=== PATIENT | female | born 1970 | race Caucasian/White ===

== ENCOUNTER → 2021-12-11 09:51 | Outpatient (BNVA) | payer OTHER, SELFPAY | PROVIDERS: Visit Provider Internal Medicine | DX: M54.50 Low back pain, unspecified (principal); M25.50 Pain in unspecified joint; Z11.59 Encounter for screening for other viral diseases | CPT/HCPCS: 72100; 72202; 80053; 82550; 83735; 84100; 85025; 86140; 86160; 86162; 86200; 86235; 86255; 86376; 86431; 86704; 86803; 86812; 87340; 99204 ==

== ENCOUNTER → 2021-12-30 14:39 | Outpatient (BNVA) | payer OTHER, SELFPAY | PROVIDERS: Visit Provider Internal Medicine | DX: M25.50 Pain in unspecified joint (principal); M54.50 Low back pain, unspecified; R76.8 Other specified abnormal immunological findings in serum | CPT/HCPCS: 72040; 72070; 73130; 99214 ==

== ENCOUNTER 2022-09-16 15:15 | Outpatient (CLI) | payer BC, OTHER, SELFPAY ==
[2022-09-16 15:50] LABS: Basophils # 0.1 10^3/uL (0.0-0.1); Basophils % 1.3 %; Eosinophils # 0.3 10^3/uL (0.0-0.8); Eosinophils % 4.6 %; Hematocrit 43.2 % (37.0-47.0); Hemoglobin 13.6 g/dL (11.5-15.3); Lymphocytes # 2.4 10^3/uL (0.8-4.8); Lymphocytes % 38.4 %; Mean Corpuscular HGB Conc 31.5 g/dL (30.0-36.0); Mean Corpuscular Hemoglobin 28.2 pg (28.0-34.0); Mean Corpuscular Volume 89.6 fl (81-99); Mean Platelet Volume 11.6 fL (7.4-10.4); Monocytes # 0.6 10^3/uL (0.2-0.9); Monocytes % 8.9 %; Neutrophils # 2.92 10^3/uL (1.8-7.7); Neutrophils % 46.5 %; Nucleated Red Blood Cells % 0 %; Platelet Count 152 10^3/cmm (130-400); Red Blood Count 4.82 10^6/uL (4.1-5.3); Red Cell Distribution Width 13.5 % (12.1-15.1); White Blood Count 6.3 10^3/uL (4.0-10.0)
[2022-09-16 15:58] LABS: Erythrocyte Sedimentation Rate 6 mm/hr (0-15)
[2022-09-16 16:06] LABS: Alanine Aminotransferase 15 U/L (0-33); Albumin Level 4.3 g/dL (3.5-5.2); Alkaline Phosphatase 88 U/L (35-105); Anion Gap 12.4 (5-19); Aspartate Amino Transferase 16 U/L (0-32); Blood Urea Nitrogen 11 mg/dL (6-20); Calcium 8.9 mg/dL (8.5-10.5); Carbon Dioxide 28 mmol/L (22-29); Chloride 106 mmol/L (98-107); Globulin 2.6 g/dL (1.3-4.6); Glomerular Filtration Rate 74.7 mL/min (90-130); Glucose 88 mg/dL (65-115); Osmolality Calculated 293 mOsm/kg (285-295); Potassium 4.4 mmol/L (3.5-5.1); Sodium 142 mmol/L (136-145); Total Bilirubin 0.3 mg/dL (0.15-1.2); Total Protein 6.9 g/dL (6.6-8.7)
== END 2022-09-16 15:16 | disposition home or self-care (01) ==
LOC: LAB 15:22
PROVIDERS: PCP Nurse Practitioner Family; Visit Provider Internal Medicine
DX: M25.50 Pain in unspecified joint (principal)
CPT/HCPCS: 36415; 80053; 85025; 85651; 86140

== ENCOUNTER → 2022-11-24 14:52 | Outpatient (BNVA) | payer OTHER, MEDICAID, SELFPAY | PROVIDERS: PCP Nurse Practitioner Family; Referring Provider Psychiatry & Neurology Neurology; Visit Provider Psychiatry & Neurology Neurology | DX: G43.019 Migraine without aura, intractable, without status migrainosus (principal); H81.09 Meniere's disease, unspecified ear; H72.90 Unspecified perforation of tympanic membrane, unspecified ear; I10 Essential (primary) hypertension; Z98.1 Arthrodesis status; M79.7 Fibromyalgia; M06.9 Rheumatoid arthritis, unspecified | CPT/HCPCS: 99203 ==

== ENCOUNTER → 2022-11-27 11:46 | Outpatient (BNVA) | payer OTHER, MEDICAID, SELFPAY | PROVIDERS: PCP Nurse Practitioner Family; Visit Provider Internal Medicine | DX: M25.50 Pain in unspecified joint (principal); M54.50 Low back pain, unspecified | CPT/HCPCS: 99214 ==

== ENCOUNTER 2022-12-14 13:06 | Outpatient (CLI) | payer OTHER, MEDICAID, SELFPAY ==
--- NOTE | 2022-12-14 13:00 | MR_ITS ---
WS: [id number] MRI BRAIN WITH AND WITHOUT CONTRAST HISTORY: G43.909 - Migraine, unspecified, not intractable, chronic neck pain. COMPARISON: None available. TECHNIQUE: Multiplanar imaging performed through the brain with MultiHance 20 ml's IV. No acute infarcts are seen. Gandhi-white matter differentiation is well preserved. There are a few very minimal scattered T2 hyperintensities within the white matter, greatest involving the RIGHT frontal lobe. These are very nonspecific and not symmetric. No hemorrhage. No susceptibility artifacts or prior lacunar infarcts. Ventricles and extra-axial spaces are normal. Clivus and pituitary gland are normal. Visualized posterior fossa and brainstem are also normal. Postcontrast images are negative for masses or vascular malformations. Dominant LEFT vertebral artery . Dural venous sinuses are normal. Paranasal sinuses: Well aerated with no significant disease. Mastoid air cells: Normal. Calvarium and scalp: Normal. MR/MR head wo/w con [id number] IMPRESSION: 1. No enhancing masses or significant microvascular ischemic disease. No prior infarct. 2. Very minimal small vessel ischemic disease, predominantly RIGHT frontal lob e. Not a typical distribution related to migraines. 3. No atrophy and no acute infarct.
[2022-12-14] MEDS: gadobenate dimeglumine 20 mL vial IV (13:59)
== END 2022-12-14 13:07 | disposition home or self-care (01) ==
LOC: RAD 13:07
PROVIDERS: PCP Nurse Practitioner Family; Visit Provider Psychiatry & Neurology Neurology
DX: G43.909 Migraine, unspecified, not intractable, without status migrainosus (principal); R42 Dizziness and giddiness
CPT/HCPCS: 70553; A9577

== ENCOUNTER 2022-12-17 09:31 | Outpatient (CLI) | payer OTHER, MEDICAID, SELFPAY ==
--- NOTE | 2022-12-17 10:00 | USCV_ITS ---
Yumiko Callejas Age: 52 Gender: F : 1970 Exam Date: 12/17/2022 10:03 Ordering Phys: Shubham Vanessa MD Technologist: LARON Exam Location: [facility] – [place] Indication: Migraines. Dizziness Risk Factors: Previous Vascular Surgery: Right Brachial BP: / Left Brachial BP: / Right Left Velocity (cm/s) Spectral Plaque Velocity (cm/s) Spectral Plaque Syst/Diast Broadening Syst/Diast Broadening 56.40/ 14.70 Prox CCA 74.30 / 18.80 59.20/ 23.70 Mid CCA 82.70 / 24.30 59.60/ 24.60 Distal CCA 69.90 / 21.00 44.30/ 16.30 Prox ICA 33.50 / 14.50 51.40/ 15.00 Mid ICA 62.60 / 31.10 52.10/ 17.90 Distal ICA 55.50 / 22.70 87.20 ECA 54.60 0.87 ICA/CCA 0.76 Vertebral 34.20/ 5.90 cm/s 76.90/ 23.30 cm/s Subclavian 112.5 139.8 0 0 CONCLUSIONS Right ICA stenosis <50%. Left ICA stenosis <50%. Normal antegrade Doppler flow noted in the right vertebral artery. Normal antegrade Doppler flow noted in the left vertebral artery. Sunil Lea MD (Electronically Signed) Final Date: 17 December 2022 10:37 S
== END 2022-12-17 09:32 | disposition home or self-care (01) ==
LOC: RAD 09:33
PROVIDERS: PCP Nurse Practitioner Family; Visit Provider Psychiatry & Neurology Neurology
DX: R42 Dizziness and giddiness (principal); G43.909 Migraine, unspecified, not intractable, without status migrainosus
CPT/HCPCS: 93880

== ENCOUNTER → 2022-12-23 14:39 | Outpatient (BNVA) | payer OTHER, MEDICAID, SELFPAY | PROVIDERS: PCP Nurse Practitioner Family; Visit Provider Otolaryngology | DX: H81.10 Benign paroxysmal vertigo, unspecified ear (principal) | CPT/HCPCS: 99203 ==

== ENCOUNTER → 2023-01-25 14:32 | Outpatient (BNVA) | payer OTHER, MEDICAID, SELFPAY | PROVIDERS: PCP Nurse Practitioner Family; Visit Provider Psychiatry & Neurology Neurology | DX: G43.019 Migraine without aura, intractable, without status migrainosus (principal); Z98.1 Arthrodesis status; R42 Dizziness and giddiness; M79.7 Fibromyalgia; M06.9 Rheumatoid arthritis, unspecified; Z91.414 Personal history of adult intimate partner abuse | CPT/HCPCS: 99212 ==

== ENCOUNTER → 2023-02-01 13:15 | Outpatient (BNVA) | payer OTHER, MEDICAID, SELFPAY | PROVIDERS: PCP Nurse Practitioner Family; Visit Provider Internal Medicine | DX: I10 Essential (primary) hypertension (principal); M25.50 Pain in unspecified joint; M54.50 Low back pain, unspecified; R51.9 Headache, unspecified | CPT/HCPCS: 36415; 80053; 81003; 82310; 82550; 82607; 82728; 83540; 83735; 83970; 84100; 84443; 85025; 85651; 86140; 99214 ==

== ENCOUNTER → 2023-05-18 13:17 | Outpatient (BNVA) | payer OTHER, MEDICAID, SELFPAY | PROVIDERS: PCP Nurse Practitioner Family; Visit Provider Internal Medicine | DX: M25.50 Pain in unspecified joint (principal); M54.50 Low back pain, unspecified | CPT/HCPCS: 36415; 80053; 81003; 82533; 82607; 82728; 83540; 83735; 84100; 85025; 85651; 86140; 99214 ==

== ENCOUNTER → 2023-07-26 13:47 | Outpatient (BNVA) | payer OTHER, MEDICAID, SELFPAY | PROVIDERS: PCP Nurse Practitioner Family; Visit Provider Psychiatry & Neurology Neurology | DX: G43.711 Chronic migraine without aura, intractable, with status migrainosus (principal); M79.641 Pain in right hand; F41.9 Anxiety disorder, unspecified; R20.0 Anesthesia of skin; R53.1 Weakness; R20.2 Paresthesia of skin; R29.898 Other symptoms and signs involving the musculoskeletal system; M79.604 Pain in right leg | CPT/HCPCS: 99212 ==

== ENCOUNTER → 2023-08-10 08:46 | Outpatient (BNVA) | payer OTHER, MEDICAID, SELFPAY | PROVIDERS: PCP Nurse Practitioner Family; Visit Provider Psychiatry & Neurology Neurology | DX: G56.03 Carpal tunnel syndrome, bilateral upper limbs (principal); G62.89 Other specified polyneuropathies | CPT/HCPCS: 95912 ==

== ENCOUNTER → 2023-08-20 15:01 | Outpatient (BNVA) | payer OTHER, MEDICAID, SELFPAY | PROVIDERS: PCP Nurse Practitioner Family; Visit Provider Psychiatry & Neurology Neurology | DX: G62.89 Other specified polyneuropathies (principal) | CPT/HCPCS: 95910; 95912 ==

== ENCOUNTER → 2023-09-07 14:06 | Outpatient (BNVA) | payer OTHER, MEDICAID, SELFPAY | PROVIDERS: PCP Nurse Practitioner Family; Referring Provider Psychiatry & Neurology Neurology; Visit Provider Physician Assistant | DX: G56.01 Carpal tunnel syndrome, right upper limb; G56.21 Lesion of ulnar nerve, right upper limb | CPT/HCPCS: 73110; 99204 ==

== ENCOUNTER 2023-09-23 08:55 | Day surgery (SDC) | payer OTHER, MEDICAID, SELFPAY ==
[2023-09-23 09:10] VITALS: BP 132/80; PULSE 59; RESP 18; TEMP 36.3; O2SAT 100
[2023-09-23 09:21] VITALS: BMI 34.9
--- NOTE | 2023-09-23 09:22 | W.PM.OPSUD ---
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
[2023-09-23] MEDS: acetaminophen 1,000 MG/100 ML PIGGYBACK 400 MG IV (09:56)
[2023-09-23] MEDS: ketorolac 30 mg/mL INJ IVP (09:58)
[2023-09-23] MEDS: scopolamine 1.5 Patch 1 PATCH TRANSDERMA (09:58)
[2023-09-23] MEDS: sodium chloride 0.9% 1,000 ML 30 ML IV (10:00)
--- NOTE | 2023-09-23 10:03 | P.ANESASSM_ITS ---
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 at G Operation Date: 09/23/23 10:25 Proposed Procedures p Carpal Tunnel Release(Right) - Jerel Stephens DO s [place] Canal Release(Right) - Jerel Stephens DO Familial anesthetic complications: none Was Beta Mike taken within 24 hours: N/A Was Clonidine taken within 24 hours: N/A Last intake: Intake Last Liquid Date 09/22/23 Last Liquid Time 23:30 Last Solid Date 09/22/23 Last Solid Time 23:30 Social No alcohol and No tobacco Exam alert, oriented x 3, clear to auscultation bilaterally and regular rate & rhythm Airway Submandibular: within normal limits Cervical ROM: within normal limits Mallampati: Class II Dentition: full CV/HEM Hypertension GI Gastroesophageal Reflux Disease Metabolic Morbid Obesity [facility] [place] Lower Back Pain and Osteoarthritis/DJD Neuropsych Anxiety, Depression, Headache and Neuropathy Anesthetic Plan ASA status: 3 Anesthesia: General Medications/Allergies Home Medications Medication Instructions Recorded Confirmed Last Taken Type budesonide-formoterol HFA 160 1 inh inhalation BID 12/11/21 09/22/23 09/23/23 History mcg-4.5 mcg/actuation aerosol inhaler (Symbicort) esomeprazole magnesium 20 mg 20 mg PO DAILY 12/11/21 09/22/23 09/21/23 21:00 History capsule,delayed release (Nexium) losartan 25 mg tablet 25 mg PO DAILY 12/11/21 09/22/23 09/22/23 09:00 History montelukast 10 mg tablet 10 mg PO DAILY 12/11/21 09/22/23 09/21/23 21:00 History (Singulair) tiotropium bromide 1.25 2 puff inhalation DAILY 12/11/21 09/22/23 09/22/23 09:00 History mcg/actuation mist for inhalation (Spiriva Respimat) vortioxetine 20 mg tablet 20 mg PO DAILY 12/11/21 09/22/23 09/22/23 09:00 Hist ory (Trintellix) morphine 15 mg tablet,extended 15 mg PO Q8H 12/30/21 09/22/23 09/23/23 History release (MS Contin) pregabalin 200 mg capsule (Lyrica) 200 mg PO TID 12/30/21 09/22/23 09/22/23 09:00 History cetirizine 10 mg tablet (Allergy 10 mg PO DAILY PRN Allergy Symptoms 04/14/22 09/22/23 09/22/23 09:00 History Relief (cetirizine)) linaclotide 72 mcg capsule 72 mcg PO DAILY 04/14/22 09/22/23 09/14/23 History (Linzess) tizanidine 4 mg capsule 4 mg PO Q8H PRN muscle spasticity 11/24/22 09/22/23 09/21/23 21:00 Rx #90 caps buspirone 10 mg tablet 10 mg PO BID #90 tabs 07/26/23 09/22/23 09/22/23 09:00 Rx hydroxychloroquine 200 mg tablet 200 mg PO BID 30 days #60 tabs 08/11/23 09/22/23 09/22/23 09:00 Rx galcanezumab-gnlm 120 mg/mL 120 mg SUBCUT .monthly #1 mL 09/13/23 09/22/23 09/18/23 Rx subcutaneous pen injector (Emgality Pen) Allergies Allergy/AdvReac Type Severity Reaction Status Date / Time promethazine [From Phenergan] Allergy Severe heart Verified 09/22/23 13:33 complications moxifloxacin [From Avelox] Allergy Mild rash Verified 09/22/23 13:33 Current Medications Generic Name Dose Route Start Last Admin Trade Name Freq PRN Reason Stop Dose Admin Sodium Chloride 1,000 mls @ 30 mls/hr 09/23/23 09:00 09/23/23 10:00 Sodium Chloride 0.9% IV 09/24/23 08:59 30 mls/hr .Q24H MICHELLE Administration PFSH Anesthesia Medical History GERD (gastroesophageal reflux disease) Asthma Anxiety Depression History of DVT (deep vein thrombosis) 1997 Chronic migraine Hypertension Sleep apnea Fibromyalgia IBS (irritable bowel syndrome) Tick fever Dizziness Hypertension Surgical History History of fusion of cervical spine History of bilateral breast reduction surgery History of carpal tunnel repair 2009- left History of tubal ligation 1998 History of tonsillectomy 1978 History of placement of ear tubes History of cholecystectomy Family History Other CAD (coronary artery disease) Cancer Lupus Rheumatoid arthritis Stroke Denies family history of Diabetes Dementia Chronic kidney disease (CKD) Social History Smoking and tobacco/nicotine status: never used tobacco/nicotine Alcohol intake: never Substance/Drug Use: never Lives independently: Yes Household members: spouse Marital status: Data Anesthesia Cardiac Studies: No Data to Display
[2023-09-23] MEDS: ceFAZolin 2,000 MG in sodium chloride 0.9% (plus) 50 ML 100 MG IV (10:28)
[2023-09-23] MEDS: ROPivacaine 0.5% SDV 30 mL 25 MG INJECTION (10:55)
[2023-09-23] MEDS: lidocaine-epi 1% 20 mL INJ 5 ML INJECTION (10:55)
--- NOTE | 2023-09-23 11:20 | W.PM.BPON ---
Date of Procedure: 09/23/2023 Surgeon: Jerel Stephens DO Square Dance Caller(s): None Procedure(s) performed: Right carpal tunnel release Right ulnar release at the wrist at [facility]'s canal Findings of the procedure(s): Patient found to have entrapment of the right median nerve and ulnar nerve at the wrist. Underwent procedure as planned with issues complications placed in a volar splint will follow-up in 2-week Estimated blood loss: 10 mL Specimen(s) removed: None Post-operative diagnosis: Right carpal tunnel syndrome, right ulnar nerve entrapment at the wrist at Guyon's canal
--- NOTE | 2023-09-23 11:22 | PM.OP ---
Operative Report Date of procedure: September 23, 2023 Surgeon: Jerel Stephens DO Procedure: Preoperative diagnosis Right carpal tunnel syndrome Right ulnar nerve entrapment at the wrist Postop Diagnosis: same Procedure done: Right carpal tunnel release Right ulnar nerve release at Guyon's canal (wrist) Surgeon: Jerel Stephens DO Estimated blood loss: 10mL Tourniquet? 20 minutes IV fluids: 500mL Complications: None Findings: See operative report narrative Condition: stable Disposition: same day Brief History: Patient's been seen and worked up in the outpatient setting and findings consistent with preoperative diagnosis.? Patient has Right Carpal Tunnel Syndrome,Right ulnar entrapment at guyons canal which has been worked up in the outpatient setting has physical exam findings consistent with this. Patient's nerve study consistent with this. Exam findings consistent with preoperative diagnosis. Patient's failed conservative treatment.? As result through shared decision making agreed to proceed with right carpal tunnel release ,?right ulnar nerve release at the wrist. We talked about tx options as nonoperative and operative intervention.? Understands risk benefits complication alternatives surgical nonsurgical treatment options.? Understanding risks pt agrees to proceed with surgical intervention. Understanding these risks pt agrees to proceed with surgery.? Consent obtained in office. Procedure: Patient seen evaluate in the preoperative holding area.? Consent was reviewed and signed with patient.? Correct extremity marked.? Patient seen evaluated by anesthesia department once cleared for surgery was then taken back to the operative suite placed in supine position all bony prominences well-padded patient properly secured to bed.? Right upper extremity placed onto armboard.? Nonsterile tourniquet applied Right upper arm.? Patient then underwent anesthesia per the anesthesia department.? Patient's Right upper extremity was then prepped and draped in standard orthopedic fashion.? Final timeout performed.? Patient received appropriate preoperative antibiotics. Esmarch was used exsanguinate the Right upper extremity.? Tourniquet was insufflated to 250 mmHg. I started with my release of the ulnar nerve at the wrist. An extensive laterally based palmar incision that extended proximal past the wrist crease with a Enrique incision was made directly over Guyon's canal. At this point in time incision was made between the Pisa form and hamate to follow neurovascular bundle of Guyon's canal. sharp scalpel incision was subsequently made through skin and then I switched to Littler dissection scissors. At this point in time I dissected down over top guyons canal release the brevis muscle belly along the hypothenar region to obtain access into Guyon's canal. Thick band of fascia was noted proximally just proximal to the wrist crease this was released and made sure there was complete decompression of the ulnar nerve proximally just prior to Guyon's canal subsequently released guyon canal and direct visualization with sharp scalpel excision as well as Littler dissection scissors with care utilizing my assistant professor of biochemistry to protect the neurovascular bundle. At this point in time I continued to perform release of the fascia/the roof of Guyon's canal all the way to its most distal extent and the nerve was found to be completely free and untethered. I then in order to perform release of the deep motor branch I then mobilized my dissection around the ulnar nerve and identified the deep motor branch as it courses towards the under knee fascia connected with the hamate. I then utilized dissection scissors and under direct visualization completed my release carefully of the fascial bands tethering over top of the deep motor branch. At this point in time the ulnar nerve was completely decompressed through Guyon's canal and ulnar nerve had complete laxity with no areas of entrapment or tethering. No masses were noted within the contents of the guyons canal.? This completed the ulnar nerve release at the wrist. Next I then subsequently visualized from the ulnar aspect of the carpal tunnel. Identified the distal extent as well as proximal extent into the antebrachial fascia. As result approaching the carpal tunnel from the ulnar position just above the hook of the hamate made an incision through thickened Transverse carpal ligament. It was noted there was significant entrapment of the median nerve. I then switched to Littler dissection scissors to complete my dissection and release distally with care to protect neurovascular structures distally. The tendons were healthy within the carpal tunnel. No masses were noted. I then carried my dissection proximally utilizing retraction by my assistant professor of biochemistry as well as direct visualization with loupe magnification identify the proximal extent of the carpal tunnel and release this to its entirety as well as identified the median nerve and released the tethering of the antebrachial fascia proximally past the wrist crease into the distal aspect of the forearm with no further evidence of median nerve entrapment. The median nerve overall showed signs of compression and inflammation irritation but overall appeared healthy. ? ?Next the wound bed was thoroughly irrigated.? Tourniquet was deflated.? Hemostasis was satisfactory.? The incision was then closed in standard interrupted mattress fashion.? Dressing was Xeroform 4 x 4's ABD Curlex soft roll and an Anselmo wrap has a bulky soft dressing and volar splint. Patient was then awakened from anesthesia and taken to PACU in stable condition. Disposition: Patient taken to PACU in stable condition recovering well.? Patient will receive appropriate discharge instructions as well as pain medication postoperatively.? We will follow-up with me in the office in 2 weeks.? Patient understands agrees with current plan.? All questions answered.? pt understands if any questions or concerns and contact the office for follow-up appointment..
--- NOTE | 2023-09-23 11:26 | ANES.PREANE2 ---
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 at G Operation Date: 09/23/23 10:25 Proposed Procedures p Carpal Tunnel Release(Right) - Jerel Stephens DO s [place] Canal Release(Right) - Jerel Stephens DO Familial anesthetic complications: none Was Beta Mike taken within 24 hours: N/A Was Clonidine taken within 24 hours: N/A Last intake: Intake Last Liquid Date 09/22/23 Last Liquid Time 23:30 Last Solid Date 09/22/23 Last Solid Time 23:30 Social No alcohol and No tobacco Exam alert, oriented x 3, clear to auscultation bilaterally and regular rate & rhythm Airway Submandibular: within normal limits Cervical ROM: within normal limits Mallampati: Class II Dentition: full CV/HEM Hypertension Neuropsych Headache Medications/Allergies Home Medications Medication Instructions Recorded Confirmed Last Taken Type budesonide-formoterol HFA 160 1 inh inhalation BID 12/11/21 09/22/23 09/23/23 History mcg-4.5 mcg/actuation aerosol inhaler (Symbicort) esomeprazole magnesium 20 mg 20 mg PO DAILY 12/11/21 09/22/23 09/21/23 21:00 History capsule,delayed release (Nexium) losartan 25 mg tablet 25 mg PO DAILY 12/11/21 09/22/23 09/22/23 09:00 History montelukast 10 mg tablet 10 mg PO DAILY 12/11/21 09/22/23 09/21/23 21:00 History (Singulair) tiotropium bromide 1.25 2 puff inhalation DAILY 12/11/21 09/22/23 09/22/23 09:00 History mcg/actuation mist for inhalation (Spiriva Respimat) vortioxetine 20 mg tablet 20 mg PO DAILY 12/11/21 09/22/23 09/22/23 09:00 History (Trintellix) morphine 15 mg tablet,extended 15 mg PO Q8H 12/30/21 09/22/23 09/23/23 History release (MS Contin) pregabalin 200 mg capsule (Lyrica) 200 mg PO TID 12/30/21 09/22/23 09/22/23 09:00 History cetirizine 10 mg tablet (Allergy 10 mg PO DAILY PRN Allergy Symptoms 04/14/22 09/22/23 09/22/23 09:00 History Relief (cetirizine)) linaclotide 72 mcg capsule 72 mcg PO DAILY 04/14/22 09/22/23 09/14/23 History (Linzess) tizanidine 4 mg capsule 4 mg PO Q8H PRN muscle spasticity 11/24/22 09/22/23 09/21/23 21:00 Rx #90 caps buspirone 10 mg tablet 10 mg PO BID #90 tabs 07/26/23 09/22/23 09/22/23 09:00 Rx hydroxychloroquine 200 mg tablet 200 mg PO BID 30 days #60 tabs 08/11/23 09/22/23 09/22/23 09:00 Rx galcanezumab-gnlm 120 mg/mL 120 mg SUBCUT .monthly #1 mL 09/13/23 09/22/23 09/18/23 Rx subcutaneous pen injector (Emgality Pen) Allergies Allergy/AdvReac Type Severity Reaction Status Date / Time promethazine [From Phenergan] Allergy Severe heart Verified 09/22/23 13:33 complications moxifloxacin [From Avelox] Allergy Mild rash Verified 09/22/23 13:33 Current Medications Generic Name Dose Route Start Last Admin Trade Name Freq PRN Reason Stop Dose Admin Sodium Chloride 1,000 mls @ 30 mls/hr 09/23/23 09:00 09/23/23 10:00 Sodium Chloride 0.9% IV 09/24/23 08:59 30 mls/hr .Q24H MICHELLE Administration PFSH Anesthesia Medical History GERD (gastroesophageal reflux disease) Asthma Anxiety Depression History of DVT (deep vein thrombosis) 1997 Chronic migraine Hypertension Sleep apnea Fibromyalgia IBS (irritable bowel syndrome) Tick fever Dizziness Hypertension Surgical History History of fusion of cervical spine History of bilateral breast reduction surgery History of carpal tunnel repair 2009- left History of tubal ligation 1997 History of tonsillectomy 1977 History of placement of ear tubes History of cholecystectomy Family History Other CAD (coronary artery disease) Cancer Lupus Rheumatoid arthritis Stroke Denies family history of Diabetes Dementia Chronic kidney disease (CKD) Social History Smoking and tobacco/nicotine status: never used tobacco/nicotine Alcohol intake: never Substance/Drug Use: never Lives independently: Yes Household members: spouse Marital status: Data Anesthesia Cardiac Studies: No Data to Display
[2023-09-23 11:38] VITALS: BP 137/76; PULSE 82; RESP 18; TEMP 36.2; O2SAT 94
[2023-09-23 11:44] VITALS: BP 139/73; PULSE 74; RESP 18; O2SAT 93
[2023-09-23 11:51] VITALS: BP 141/68; PULSE 71; RESP 18; O2SAT 91
[2023-09-23 11:58] VITALS: BP 135/81; PULSE 65; RESP 18; O2SAT 95
[2023-09-23 12:11] VITALS: BP 133/84; PULSE 67; RESP 18; TEMP 36.2; O2SAT 92
--- NOTE | 2023-09-23 15:05 | ANE.PACU2 ---
Inpatient post-anesthesia follow up: Airway intact: Yes Vital signs: Temperature 97.1 F Pulse Rate 67 Respiratory Rate 18 Blood Pressure 133/84 Pulse Oximetry 92 Oxygen Delivery Me thod Room Air Oxygen Flow Rate Fraction of Inspir ed Oxygen Hydration adequate: Yes Nausea and vomiting: No Pain level: 2 Mental status: Baseline
== END 2023-09-23 12:50 | disposition home or self-care (01) ==
PROVIDERS: PCP Nurse Practitioner Family; Visit Provider Student in an Organized Health Care Education/Training Program
PROC: (CPT 64721; principal; 2023-09-23 10:15)
PROC: (CPT 64719; 2023-09-23 10:15)
DX: G56.01 Carpal tunnel syndrome, right upper limb (principal); G56.21 Lesion of ulnar nerve, right upper limb; I10 Essential (primary) hypertension; K21.9 Gastro-esophageal reflux disease without esophagitis; E66.01 Morbid (severe) obesity due to excess calories; Z68.34 Body mass index [BMI] 34.0-34.9, adult; Z86.718 Personal history of other venous thrombosis and embolism; G47.30 Sleep apnea, unspecified; M79.7 Fibromyalgia
CPT/HCPCS: 64719; 64721; J0131; J0690; J1100; J1885; J2405; J2704; J2710; J2795; J3010; J3490; J7030

== ENCOUNTER → 2023-10-14 09:00 | Outpatient (BNVA) | payer OTHER, MEDICAID, SELFPAY | PROVIDERS: PCP Nurse Practitioner Family; Visit Provider Physician Assistant | DX: Z98.890 Other specified postprocedural states (principal) | CPT/HCPCS: 99024 ==

== ENCOUNTER 2023-12-13 15:15 | Outpatient (CLI) | payer OTHER, MEDICAID, SELFPAY ==
[2023-12-13 15:40] LABS: Basophils # 0.1 10^3/uL (0.0-0.1); Basophils % 1.2 %; Eosinophils # 0.2 10^3/uL (0.0-0.8); Eosinophils % 2.9 %; Hematocrit 42.4 % (36-47); Lymphocytes # 1.9 10^3/uL (0.8-4.8); Lymphocytes % 36.3 %; Mean Corpuscular HGB Conc 33.3 g/dL (30-55); Mean Corpuscular Hemoglobin 29.2 pg (27-33); Mean Corpuscular Volume 87.8 fl (85-98); Mean Platelet Volume 12.3 fL (7.4-10.4); Monocytes # 0.4 10^3/uL (0.2-0.9); Monocytes % 7.4 %; Neutrophils # 2.67 10^3/uL (1.8-7.7); Neutrophils % 51.8 %; Nucleated Red Blood Cells % 0 %; Platelet Count 134 10^3/cmm (157-399); Red Blood Count 4.83 10^6/uL (3.85-5.65); Red Cell Distribution Width 12.9 % (12.1-15.1); White Blood Count 5.15 10^3/uL (3.29-11.43)
[2023-12-13 15:57] LABS: Alanine Aminotransferase 16 U/L (0-33); Albumin Level 4.2 g/dL (3.5-5.2); Alkaline Phosphatase 88 U/L (35-105); Aspartate Amino Transferase 20 U/L (0-32); Globulin 2.9 g/dL (1.3-4.6); Glomerular Filtration Rate 74.5 mL/min (90-130); Total Bilirubin 0.4 mg/dL (0.15-1.2); Total Protein 7.1 g/dL (6.6-8.7)
== END 2023-12-13 15:16 | disposition home or self-care (01) ==
LOC: LAB 15:17
PROVIDERS: PCP Nurse Practitioner Family; Visit Provider Internal Medicine Rheumatology
DX: M25.50 Pain in unspecified joint (principal)
CPT/HCPCS: 80076; 82565; 85025; 86140

== ENCOUNTER → 2024-02-28 11:23 | Outpatient (BNVA) | payer OTHER, MEDICAID, SELFPAY | PROVIDERS: PCP Nurse Practitioner Family; Visit Provider Internal Medicine Rheumatology | DX: M05.79 Rheumatoid arthritis with rheumatoid factor of multiple sites without organ or systems involvement (principal); Z79.899 Other long term (current) drug therapy; Z71.85 Encounter for immunization safety counseling; M47.816 Spondylosis without myelopathy or radiculopathy, lumbar region | CPT/HCPCS: 99214 ==

== ENCOUNTER 2024-04-07 14:16 | Outpatient (CLI) | payer OTHER, MEDICAID, SELFPAY ==
[2024-04-07 14:44] LABS: Basophils # 0.1 10^3/uL (0.0-0.1); Basophils % 1.1 %; Eosinophils # 0.2 10^3/uL (0.0-0.8); Eosinophils % 3.5 %; Hematocrit 44.3 % (36-47); Lymphocytes # 2.5 10^3/uL (0.8-4.8); Lymphocytes % 43.3 %; Mean Corpuscular HGB Conc 31.6 g/dL (30-55); Mean Corpuscular Hemoglobin 29.4 pg (27-33); Mean Corpuscular Volume 92.9 fl (85-98); Mean Platelet Volume 12.3 fL (7.4-10.4); Monocytes # 0.4 10^3/uL (0.2-0.9); Neutrophils # 2.57 10^3/uL (1.8-7.7); Neutrophils % 44.9 %; Nucleated Red Blood Cells % 0 %; Platelet Count 141 10^3/cmm (157-399); Red Blood Count 4.77 10^6/uL (3.85-5.65); Red Cell Distribution Width 13.9 % (12.1-15.1); White Blood Count 5.71 10^3/uL (3.29-11.43)
[2024-04-07 14:49] LABS: Erythrocyte Sedimentation Rate 6 mm/hr (0-15)
[2024-04-07 15:06] LABS: Alanine Aminotransferase 22 U/L (0-33); Alkaline Phosphatase 82 U/L (35-105); Aspartate Amino Transferase 22 U/L (0-32); Globulin 2.9 g/dL (1.3-4.6); Total Bilirubin 0.5 mg/dL (0.15-1.2); Total Protein 6.9 g/dL (6.6-8.7)
== END 2024-04-07 14:17 | disposition home or self-care (01) ==
LOC: LAB 14:17
PROVIDERS: PCP Nurse Practitioner Family; Visit Provider Internal Medicine Rheumatology
DX: Z79.899 Other long term (current) drug therapy (principal)
CPT/HCPCS: 36415; 80076; 82565; 85025; 85651; 86140

== ENCOUNTER 2024-08-04 14:36 | Outpatient (CLI) | payer OTHER, MEDICAID, SELFPAY ==
[2024-08-04 15:24] LABS: Basophils # 0.1 10^3/uL (0.0-0.1); Eosinophils # 0.1 10^3/uL (0.0-0.8); Eosinophils % 1.9 %; Hematocrit 41.1 % (36-47); Lymphocytes # 1.6 10^3/uL (0.8-4.8); Lymphocytes % 31.4 %; Mean Corpuscular HGB Conc 32.1 g/dL (30-55); Mean Corpuscular Hemoglobin 29.6 pg (27-33); Mean Corpuscular Volume 92.2 fl (85-98); Mean Platelet Volume 12.5 fL (7.4-10.4); Monocytes # 0.2 10^3/uL (0.2-0.9); Monocytes % 4.6 %; Neutrophils # 3.19 10^3/uL (1.8-7.7); Neutrophils % 60.9 %; Nucleated Red Blood Cells % 0 %; Platelet Count 127 10^3/cmm (157-399); Red Blood Count 4.46 10^6/uL (3.85-5.65); White Blood Count 5.23 10^3/uL (3.29-11.43)
[2024-08-04 15:44] LABS: Erythrocyte Sedimentation Rate 3 mm/hr (0-15)
[2024-08-04 15:46] LABS: Alanine Aminotransferase 19 U/L (0-33); Albumin Level 4.1 g/dL (3.5-5.2); Alkaline Phosphatase 79 U/L (35-105); Aspartate Amino Transferase 18 U/L (0-32); Globulin 2.5 g/dL (1.3-4.6); Glomerular Filtration Rate 103.8 mL/min (90-130); Total Bilirubin 0.3 mg/dL (0.15-1.2); Total Protein 6.6 g/dL (6.6-8.7)
== END 2024-08-04 14:37 | disposition home or self-care (01) ==
LOC: LAB 14:38
PROVIDERS: PCP Nurse Practitioner Family; Visit Provider Internal Medicine Rheumatology
DX: Z79.899 Other long term (current) drug therapy (principal); Z01.419 Encounter for gynecological examination (general) (routine) without abnormal findings
CPT/HCPCS: 36415; 80076; 82565; 85025; 85651; 86140; 87624

== ENCOUNTER → 2024-08-10 12:18 | Outpatient (BNVA) | payer OTHER, MEDICAID, SELFPAY | PROVIDERS: PCP Nurse Practitioner Family; Visit Provider Psychiatry & Neurology Neurology | DX: G43.711 Chronic migraine without aura, intractable, with status migrainosus (principal); M79.641 Pain in right hand; R20.0 Anesthesia of skin; R20.2 Paresthesia of skin; R29.898 Other symptoms and signs involving the musculoskeletal system; M79.604 Pain in right leg; F41.9 Anxiety disorder, unspecified | CPT/HCPCS: 36415; 85025; 99212 ==

== ENCOUNTER → 2024-08-14 14:18 | Outpatient (BNVA) | payer OTHER, MEDICAID, SELFPAY | PROVIDERS: PCP Nurse Practitioner Family; Visit Provider Internal Medicine Rheumatology | DX: M05.79 Rheumatoid arthritis with rheumatoid factor of multiple sites without organ or systems involvement (principal); Z79.899 Other long term (current) drug therapy; Z71.85 Encounter for immunization safety counseling | CPT/HCPCS: 99214 ==

== ENCOUNTER → 2024-08-29 13:32 | Outpatient (BNVA) | payer OTHER, MEDICAID, SELFPAY | PROVIDERS: PCP Nurse Practitioner Family; Visit Provider Podiatrist Foot & Ankle Surgery | DX: G57.51 Tarsal tunnel syndrome, right lower limb (principal) | CPT/HCPCS: 99204 ==

== ENCOUNTER 2024-09-14 15:08 | Outpatient (CLI) | payer OTHER, MEDICAID, SELFPAY ==
[2024-09-14 15:51] LABS: Basophils # 0.1 10^3/uL (0.0-0.1); Basophils % 1.3 %; Eosinophils # 0.2 10^3/uL (0.0-0.8); Eosinophils % 3.6 %; Hematocrit 41.9 % (36-47); Lymphocytes % 35.7 %; Mean Corpuscular HGB Conc 30.5 g/dL (30-55); Mean Corpuscular Hemoglobin 29.1 pg (27-33); Mean Corpuscular Volume 95.2 fl (85-98); Monocytes # 0.5 10^3/uL (0.2-0.9); Monocytes % 8.7 %; Neutrophils # 2.79 10^3/uL (1.8-7.7); Neutrophils % 50.5 %; Nucleated Red Blood Cells % 0 %; Platelet Count 132 10^3/cmm (157-399); Red Cell Distribution Width 13.8 % (12.1-15.1); White Blood Count 5.52 10^3/uL (3.29-11.43)
[2024-09-14 16:39] LABS: Alanine Aminotransferase 22 U/L (0-33); Albumin Level 4.2 g/dL (3.5-5.2); Alkaline Phosphatase 75 U/L (35-105); Aspartate Amino Transferase 23 U/L (0-32); Globulin 2.4 g/dL (1.3-4.6); Glomerular Filtration Rate 74.2 mL/min (90-130); Total Bilirubin 0.3 mg/dL (0.15-1.2); Total Protein 6.6 g/dL (6.6-8.7)
[2024-09-14 16:53] LABS: Erythrocyte Sedimentation Rate 9 mm/hr (0-15); Slide Review Slide Review Perform
== END 2024-09-14 15:09 | disposition home or self-care (01) ==
LOC: LAB 15:11
PROVIDERS: PCP Nurse Practitioner Family; Visit Provider Internal Medicine Rheumatology
DX: Z79.899 Other long term (current) drug therapy (principal)
CPT/HCPCS: 36415; 80076; 82565; 85025; 85651; 86140

== ENCOUNTER → 2024-11-28 13:03 | Outpatient (BNVA) | payer OTHER, MEDICAID, SELFPAY | PROVIDERS: PCP Nurse Practitioner Family; Visit Provider Podiatrist Foot & Ankle Surgery | DX: G57.51 Tarsal tunnel syndrome, right lower limb (principal) | CPT/HCPCS: 99213 ==

== ENCOUNTER → 2024-12-11 13:28 | Outpatient (BNVA) | payer OTHER, MEDICAID, SELFPAY | PROVIDERS: PCP Nurse Practitioner Family; Visit Provider Internal Medicine Rheumatology | DX: M05.79 Rheumatoid arthritis with rheumatoid factor of multiple sites without organ or systems involvement (principal); Z79.899 Other long term (current) drug therapy; Z71.85 Encounter for immunization safety counseling | CPT/HCPCS: 36415; 80076; 82306; 82565; 85025; 85651; 86140; 86480; 99214 ==

== ENCOUNTER → 2024-12-25 13:19 | Outpatient (BNVA) | payer OTHER, MEDICAID, SELFPAY | PROVIDERS: PCP Nurse Practitioner Family; Visit Provider Psychiatry & Neurology Neurology | DX: G43.711 Chronic migraine without aura, intractable, with status migrainosus (principal); M79.641 Pain in right hand; R20.0 Anesthesia of skin; R20.2 Paresthesia of skin; R29.898 Other symptoms and signs involving the musculoskeletal system; M79.604 Pain in right leg; F41.9 Anxiety disorder, unspecified | CPT/HCPCS: G0463 ==

== ENCOUNTER → 2025-03-06 13:12 | Outpatient (BNVA) | payer OTHER, SELFPAY | PROVIDERS: PCP Nurse Practitioner Family; Visit Provider Podiatrist Foot & Ankle Surgery | DX: G57.51 Tarsal tunnel syndrome, right lower limb (principal) | CPT/HCPCS: 99213 ==

== ENCOUNTER 2025-04-19 14:59 | Outpatient (CLI) | payer OTHER, SELFPAY ==
[2025-04-19 15:39] LABS: Hematocrit 42.0 % (36-47); Hemoglobin 13.30 g/dL (11.27-16.99); Mean Corpuscular HGB Conc 31.7 g/dL (30-55); Mean Corpuscular Hemoglobin 30.5 pg (27-33); Mean Corpuscular Volume 96.3 fl (85-98); Nucleated Red Blood Cells % 0 %; Platelet Count 137 10^3/cmm (157-399); Red Blood Count 4.36 10^6/uL (3.85-5.65); White Blood Count 4.89 10^3/uL (3.29-11.43)
[2025-04-19 16:09] LABS: Alanine Aminotransferase 15 U/L (0-33); Albumin Level 4.3 g/dL (3.5-5.2); Alkaline Phosphatase 79 U/L (35-105); Aspartate Amino Transferase 21 U/L (0-32); Globulin 2.9 g/dL (1.3-4.6); Total Protein 7.2 g/dL (6.6-8.7)
== END 2025-04-19 15:00 | disposition home or self-care (01) ==
LOC: LAB 15:01
PROVIDERS: PCP Nurse Practitioner Family; Visit Provider Internal Medicine Rheumatology
DX: Z79.899 Other long term (current) drug therapy (principal)
CPT/HCPCS: 36415; 80076; 82565; 85025; 85651; 86140

== ENCOUNTER → 2025-04-24 14:32 | Outpatient (BNVA) | payer OTHER, SELFPAY | PROVIDERS: PCP Nurse Practitioner Family; Visit Provider Internal Medicine Rheumatology | DX: M05.79 Rheumatoid arthritis with rheumatoid factor of multiple sites without organ or systems involvement (principal); Z79.899 Other long term (current) drug therapy; Z71.85 Encounter for immunization safety counseling; M51.369 Other intervertebral disc degeneration, lumbar region without mention of lumbar back pain or lower extremity pain; G56.03 Carpal tunnel syndrome, bilateral upper limbs | CPT/HCPCS: 99214 ==